=== PATIENT | female | born 1990 | race Caucasian/White ===

== ENCOUNTER → 2025-04-16 | Outpatient (CLI) | payer OTHER, SELFPAY ==
--- NOTE | 2025-04-16 10:22 | MRI_ITS ---
PROCEDURE: SPINE LUMBAR (ROUTINE) 04/16/2025 REASON FOR EXAM: Clinical history of lumbar radiculopathy TECHNIQUE: Procedure Code: MRISPL Modality: MR Procedure: SPINE LUMBAR (ROUTINE) COMPARISON: None available. FINDINGS: For the purposes of this report, the most caudal rectangular vertebral body will be designated L5. The next most caudal trapezoidal shaped vertebral body will be designated S1. The intervening disc at the lumbosacral angle is designated L5-S1. The normal lumbar lordosis is maintained. The lumbar vertebral bodies are normal in height. The lumbar vertebral bodies are normal in alignment. No bone marrow replacing lesion in the lumbar spine. Multilevel disc desiccation. Disc desiccation and intervertebral disc space height loss most prominent at L5-S1. There is no evidence of signal abnormality in the imaged distal spinal cord. The conus medullaris terminates at the level of T12-L1. T12-L1: No significant spinal canal stenosis or neural foraminal narrowing. L1-L2: No significant spinal canal stenosis or neural foraminal narrowing. L2-L3: No significant spinal canal stenosis or neural foraminal narrowing. L3-L4: No significant spinal canal stenosis or neural foraminal narrowing. L4-L5: Disc bulge bilateral facet arthrosis, and ligamentum flavum hypertrophy contribute to mild spinal canal stenosis. The left traversing nerve roots abut the disc. No significant neural foraminal narrowing. L5-S1: Disc bulge with superimposing central disc protrusion. Possible tiny annular fissuring. Mild spinal canal stenosis. No significant neural foraminal narrowing. Type 2 Modic endplate changes. The posterior paraspinal muscles are unremarkable. MRI/Spine Lumbar (Routine) IMPRESSION: Lumbar spondylosis without high-grade spinal canal or neural foraminal stenosis . Reading Location: [id number]
== END | disposition home or self-care (01) ==
LOC: MRI 10:13
PROVIDERS: Referring Provider Nurse Practitioner Family; Visit Provider Nurse Practitioner Family
DX: M54.16 Radiculopathy, lumbar region (principal); I73.9 Peripheral vascular disease, unspecified
CPT/HCPCS: 72148